=== PATIENT | male | born 1955 | race Caucasian/White ===

== ENCOUNTER 2016-12-21 21:20 | Emergency (ER) | payer OTHER ==
[~2016-12-21] VITALS: Ht 170.2 cm; Wt 66.4 kg
[~2016-12-21 21:20] MED LIST: AVAPRO TAB150 MG/TAB PO; CLEOCIN HCL300 MG PO; COUMADIN 5MG5 MG/TAB PO; LORTAB 5/500 501 TAB; NORVASC 5MG5 MG/TAB PO; PERCOCET 325 MG1 TA2 PO; PRAVACHOL 40MG40 MG PO; PROTONIX 40MG T40 MG PO; PROVENTIL0.09 MG/A1 IH; RYZOLT100 MG; TUSS PO; ZITHROMAX 250M250 MG PO; ZOLOFT 50MG50 MG PO
[2016-12-21 21:22] VITALS: TEMP 97.9
[2016-12-21] MEDS ORDERED: TENORMIN 2525 MG/TAB (21:32)
[2016-12-21] MEDS ORDERED: PERCOCET 325 MG1 TA2 PO (22:07)
[2016-12-21] MEDS ORDERED: ULTRAM 50MG TAB50 MG PO (22:07)
[2016-12-21 22:36] LABS: INR 1.5 (0.8-3.0); PROTHROMBIN TIME 16.8 SECONDS (9.7-12.8)
[2016-12-21 23:42] VITALS: BP 127/86; PULSE 71
== END 2016-12-21 23:32 | disposition home or self-care (01) ==
LOC: COL.ER 21:20
PROVIDERS: Emergency Medicine
DX: S09.90XA Unspecified injury of head, initial encounter (principal); S00.81XA Abrasion of other part of head, initial encounter; S60.511A Abrasion of right hand, initial encounter; I10 Essential (primary) hypertension; K21.9 Gastro-esophageal reflux disease without esophagitis; F17.210 Nicotine dependence, cigarettes, uncomplicated; Z23 Encounter for immunization; Z79.01 Long term (current) use of anticoagulants; Z86.73 Personal history of transient ischemic attack (TIA), and cerebral infarction without residual deficits; V19.9XXA Pedal cyclist (driver) (passenger) injured in unspecified traffic accident, initial encounter; Y92.410 Unspecified street and highway as the place of occurrence of the external cause

== ENCOUNTER 2017-01-22 13:01 | Day surgery (SDC) | payer OTHER ==
[~2017-01-22] VITALS: Ht 170.2 cm; Wt 64.9 kg
[~2017-01-22 13:01] MED LIST changes: +TENORMIN 2525 MG/TAB; +ULTRAM 50MG TAB50 MG PO
[2017-01-22 13:24] VITALS: BP 145/78; PULSE 57; TEMP 97
[2017-01-22] MEDS ORDERED: TENORMIN 5050 MG/TAB PO (13:38)
[2017-01-22] MEDS ORDERED: COUMADIN 3MG3 MG/TAB PO (13:39)
[2017-01-22 15:00] VITALS: BP 122/66; PULSE 50; TEMP 97.2
[2017-01-22 15:15] VITALS: BP 107/65; PULSE 59
[2017-01-22 15:30] VITALS: BP 120/65; PULSE 58
[2017-01-22 15:45] VITALS: BP 112/67; PULSE 47
[2017-01-22 16:37] VITALS: BP 117/72; PULSE 48
== END 2017-01-22 15:56 | disposition home or self-care (01) ==
LOC: SDCO 13:01
DX: K57.30 Diverticulosis of large intestine without perforation or abscess without bleeding (principal); K21.9 Gastro-esophageal reflux disease without esophagitis; I10 Essential (primary) hypertension; E78.00 Pure hypercholesterolemia, unspecified; J45.909 Unspecified asthma, uncomplicated; K59.00 Constipation, unspecified; Z79.01 Long term (current) use of anticoagulants; Z86.73 Personal history of transient ischemic attack (TIA), and cerebral infarction without residual deficits; Z86.010 Personal history of colon polyps; Z83.71 Family history of colonic polyps
CPT/HCPCS: J2250; J3010

== ENCOUNTER 2017-01-31 19:48 | Emergency (ER) | payer OTHER ==
[~2017-01-31] VITALS: Ht 170.2 cm; Wt 67.7 kg
[~2017-01-31 19:48] MED LIST changes: +COUMADIN 3MG3 MG/TAB PO; +TENORMIN 5050 MG/TAB PO
[2017-01-31 19:51] VITALS: TEMP 97.5
[2017-01-31 20:59] LABS: BASO # 0.1 (0.0-0.2); BASO % 0.6 % (0.0-2.0); EOS # 0.3 (0.0-0.7); EOS % 3.2 % (0-4.0); GRAN # 4.9 (1.4-6.5); GRAN % 55.7 % (42.2-75.2); HEMATOCRIT 44.2 % (42.0-52.0); HEMOGLOBIN 15.2 g/dl (13.5-18.0); LYMPH # 2.9 (1.2-3.4); LYMPH % 32.7 % (20.0-51.0); MEAN CELL VOLUME 86 fl (80.0-100.0); MEAN CORPUSCULAR HEMOGLOBIN 30 pg (27.0-31.0); MEAN CORPUSCULAR HGB CONC 34 g/dl (33.0-37.0); MONO # 0.7 (0.1-0.6); MONO % 7.6 % (1.7-9.3); PLATELET COUNT 206 K/mm3 (130-400); RED BLOOD COUNT 5.13 M/mm3 (4.20-5.60); REDCELL DISTRIBUTION WIDTH-CV 13.2 % (11.5-14.5); WHITE BLOOD COUNT 8.8 K/mm3 (4.8-10.8)
[2017-01-31 21:15] LABS: ADJUSTED CALCIUM 9.2 mg/dL (8.4-10.2); ALANINE AMINOTRANSFERASE 19 U/L (21-72); ALKALINE PHOSPHATASE 89 U/L (50-136); ANION GAP 10 mmol/L (7-16); BILIRUBIN,TOTAL 0.4 mg/dL (0.0-1.0); BLOOD UREA NITROGEN 22 mg/dL (9-20); CALCIUM 9.2 mg/dL (8.4-10.2); CARBON DIOXIDE 22 mmol/L (22-30); CHLORIDE 108 mmol/L (98-107); CREATININE, serum 0.96 mg/dL (0.66-1.25); GLUCOSE 94 mg/dL (74-106); POTASSIUM 4.1 mmol/L (3.4-5.0); SODIUM 141 mmol/L (137-145); TOTAL PROTEIN 7.1 gm/dL (6.4-8.2)
[2017-01-31 21:18] LABS: INR 1.4 (0.8-3.0); PROTHROMBIN TIME 15.5 SECONDS (9.7-12.8)
[2017-01-31 21:20] LABS: PARTIAL THROMBOPLASTIN TIME 30.8 SECONDS (26.0-37.0)
[2017-01-31 21:31] LABS: TROPONIN-I < 0.012 ng/mL (0.000-0.034)
[2017-01-31] MEDS ORDERED: NORCO 325 MG-51 TAB PO (21:36)
[2017-01-31 21:50] VITALS: BP 175/96; PULSE 45
== END 2017-01-31 21:55 | disposition home or self-care (01) ==
LOC: COL.ER 19:48
PROVIDERS: Family Medicine
DX: R09.1 Pleurisy (principal); I10 Essential (primary) hypertension; Z86.73 Personal history of transient ischemic attack (TIA), and cerebral infarction without residual deficits; Z79.01 Long term (current) use of anticoagulants
CPT/HCPCS: J1170

== ENCOUNTER 2018-04-30 12:38 | Emergency (ER) | payer BC ==
[~2018-04-30] VITALS: Ht 170.2 cm; Wt 68.2 kg
[~2018-04-30 12:38] MED LIST changes: +NORCO 325 MG-51 TAB PO
[2018-04-30 12:53] VITALS: TEMP 97.6
[2018-04-30] MEDS ORDERED: NORCO 325 MG-7.1 TAB PO (13:55)
[2018-04-30 14:48] VITALS: BP 190/101; PULSE 50
--- NOTE | 2018-04-30 15:34 | NUR ---
LIDA responded to ED call. The patient's nurse reports that the patient answered to the first three questions of the suicide assessment, but that he had already discharged back home with his . LIDA then attempted to contact the patient to follow up and to offer to make a behavioral health appointment. The patient did not answer and he did not have a voicemail set up. LIDA then contacted the patient's PCPs office, Dr. Mckeon, and informed. LIDA was then provided with a different number for the patient's , Essie. LIDA attempted to contact. The automative voice said that the customer was unavailable or traveled outside the covered area.
== END 2018-04-30 14:45 | disposition home or self-care (01) ==
LOC: COL.ER 12:38
DX: S67.193A Crushing injury of left middle finger, initial encounter (principal); K21.9 Gastro-esophageal reflux disease without esophagitis; F17.210 Nicotine dependence, cigarettes, uncomplicated; Z79.01 Long term (current) use of anticoagulants; Z86.73 Personal history of transient ischemic attack (TIA), and cerebral infarction without residual deficits; Z88.0 Allergy status to penicillin; W23.0XXA Caught, crushed, jammed, or pinched between moving objects, initial encounter; Y92.009 Unspecified place in unspecified non-institutional (private) residence as the place of occurrence of the external cause

== ENCOUNTER → 2018-06-25 | Outpatient (CLI) | payer BC ==
[~2018-06-25] MED LIST changes: +NORCO 325 MG-7.1 TAB PO
== END ==
LOC: COL.RAD 14:05
DX: M79.641 Pain in right hand (principal)

== ENCOUNTER 2019-03-18 13:19 | Emergency (ER) | payer BC ==
[~2019-03-18] VITALS: Ht 170.2 cm; Wt 70.5 kg
[2019-03-18 13:33] VITALS: BP 195/97; TEMP 98
[2019-03-18] MEDS ORDERED: MEDROL 4MG DOSPA4 MG PO (14:42)
[2019-03-18] MEDS ORDERED: NORCO 325 MG-51 TAB PO (14:42)
[2019-03-18 15:04] VITALS: PULSE 52
== END 2019-03-18 15:05 | disposition home or self-care (01) ==
LOC: COL.ER 13:19
DX: M10.9 Gout, unspecified (principal); F17.210 Nicotine dependence, cigarettes, uncomplicated; Z79.01 Long term (current) use of anticoagulants; Z86.73 Personal history of transient ischemic attack (TIA), and cerebral infarction without residual deficits

== ENCOUNTER → 2019-06-06 | Outpatient (CLI) | payer BC ==
[~2019-06-06] MED LIST changes: +MEDROL 4MG DOSPA4 MG PO
== END ==
LOC: COL.VAS 08:00
DX: I35.1 Nonrheumatic aortic (valve) insufficiency (principal)

== ENCOUNTER 2021-08-04 13:37 | Emergency (ER) | payer BC ==
[~2021-08-04] VITALS: Ht 170.2 cm; Wt 72.7 kg
[2021-08-04 14:50] LABS: BASO % 0.3 % (0.0-2.0); EOS # 0.4 K/mm3 (0.0-0.7); EOS % 3.1 % (0.0-4.0); GRAN # 9.6 K/mm3 (1.4-6.5); GRAN % 77.9 % (42.2-75.2); HEMOGLOBIN 12.2 g/dl (13.5-18.0); LYMPH # 1.2 K/mm3 (1.2-3.4); LYMPH % 9.8 % (20.0-51.0); MEAN CELL VOLUME 82 fl (80.0-100.0); MEAN CORPUSCULAR HEMOGLOBIN 28 pg (27-31); MEAN CORPUSCULAR HGB CONC 34 g/dl (33.0-37.0); MEAN PLATELET VOLUME 10.8 fl (7.4-10.4); MONO % 8.4 % (1.7-9.3); PLATELET COUNT 300 K/mm3 (130-400); RED BLOOD COUNT 4.36 M/mm3 (4.20-5.60); REDCELL DISTRIBUTION WIDTH-CV 13.1 % (11.5-14.5)
[2021-08-04 14:52] LABS: HEMATOCRIT 35.8 % (42.0-52.0)
[2021-08-04 15:04] LABS: ALANINE AMINOTRANSFERASE 30 U/L (0-55); ALBUMIN 2.3 gm/dL (3.4-4.8); ALKALINE PHOSPHATASE 74 U/L (40-150); ANION GAP 12 mmol/L (7-16); AST,SGOT 24 U/L (5-34); BILIRUBIN,TOTAL 0.3 mg/dL (0.2-1.2); BLOOD UREA NITROGEN 23 mg/dL (8-26); CALCIUM 8.4 mg/dL (8.4-10.2); CARBON DIOXIDE 17 mmol/L (23-31); CHLORIDE 106 mmol/L (98-107); CREATININE, serum 1.06 mg/dL (0.72-1.25); GLUCOSE 126 mg/dL (70-99); SODIUM 135 mmol/L (136-145); TOTAL PROTEIN 6.6 gm/dL (6.2-8.1)
[2021-08-04 15:13] LABS: TROPONIN-I < 0.010 ng/mL (0.00-0.033)
[2021-08-04] MEDS ORDERED: DOXYCYCLINE 10100 MG PO (15:25)
[2021-08-04 15:34] VITALS: BP 118/63; PULSE 80; TEMP 97.6
[2021-08-05] MEDS ORDERED: BENICAR40 MG PO (14:10)
[2021-08-05] MEDS ORDERED: PROTONIX 40MG T40 MG PO (20:22)
[2021-08-07] VITALS (28 sets, daily range): O2SAT 86–100
== END 2021-08-04 15:43 | disposition home or self-care (01) ==
LOC: COL.ER 13:37
PROVIDERS: Physician Assistant
DX: J18.9 Pneumonia, unspecified organism (principal); K08.9 Disorder of teeth and supporting structures, unspecified; Z87.891 Personal history of nicotine dependence; Z20.822 Contact with and (suspected) exposure to COVID-19
CPT/HCPCS: J7030

== ENCOUNTER 2021-08-05 12:55 | Inpatient (IN) | payer BC ==
[2021-08-05] VITALS (93 sets, daily range): BP systolic 123; BP diastolic 73; PULSE 82; TEMP 99.4; O2SAT 77–100
[~2021-08-05] VITALS: Ht 170.2 cm; Wt 64.3 kg
[~2021-08-05 12:55] MED LIST changes: +DOXYCYCLINE 10100 MG PO
[2021-08-05 13:34] LABS: BASO # 0.1 K/mm3 (0.0-0.2); BASO % 0.3 % (0.0-2.0); EOS # 0.2 K/mm3 (0.0-0.7); GRAN # 16.2 K/mm3 (1.4-6.5); GRAN % 86.3 % (42.2-75.2); HEMATOCRIT 37.2 % (42.0-52.0); HEMOGLOBIN 12.4 g/dl (13.5-18.0); LYMPH % 5.3 % (20.0-51.0); MEAN CELL VOLUME 85 fl (80.0-100.0); MEAN CORPUSCULAR HEMOGLOBIN 28 pg (27-31); MEAN CORPUSCULAR HGB CONC 33 g/dl (33.0-37.0); MEAN PLATELET VOLUME 10.7 fl (7.4-10.4); MONO # 1.2 K/mm3 (0.1-0.6); MONO % 6.3 % (1.7-9.3); PLATELET COUNT 285 K/mm3 (130-400); REDCELL DISTRIBUTION WIDTH-CV 13.6 % (11.5-14.5)
[2021-08-05 13:52] LABS: BILIRUBIN,TOTAL 0.4 mg/dL (0.2-1.2); CALCIUM 8.6 mg/dL (8.4-10.2); CREATININE, serum 1.09 mg/dL (0.72-1.25); POTASSIUM 4.7 mmol/L (3.5-4.5); TOTAL PROTEIN 6.5 gm/dL (6.2-8.1)
[2021-08-05 13:58] LABS: TROPONIN-I 0.013 ng/mL (0.00-0.033)
[2021-08-05] MEDS ORDERED: BENICAR40 MG PO (14:10)
[2021-08-05 16:59] LABS: INR 3.2 (0.8-3.0); PROTHROMBIN TIME 36.4 SECONDS (9.7-12.8)
[2021-08-05] MEDS ORDERED: PROTONIX 40MG T40 MG PO (20:22)
[2021-08-05 21:43] LABS: ARTERIAL BLD GAS O2 SATURATION 87.4 % (92-100); ARTERIAL BLD GAS TCO2 CT 20.3; ARTERIAL BLOOD GAS BASE EXCESS -4.1 (-2-2); ARTERIAL BLOOD GAS HCO3 19.4 meq/L (22-26); ARTERIAL BLOOD GAS PO2 49.2 mmHg (80-100); ARTERIAL BLOOD GAS pH 7.41 (7.35-7.45)
--- NOTE | 2021-08-05 21:46 | NUR ---
Vancomycin Initial Dosing Pharmacy Note Ordering provider: Stephane Mckeon MD Indication/duration: PNA X 7 days Relevant comorbidities: HTN, asthma LABS: WBC = 18.7, T = 99.1 F, SCr = 1.09 Recommendation: Will draw troughs and follow levels. Loading dose: 1.5 grams Maintenance dose: 1 gram every 12 hours Trough goal: 15-20 ug/mL
[2021-08-06] VITALS (711 sets, daily range): BP systolic 109–152; BP diastolic 65–88; PULSE 80–87; TEMP 97.6–99.5; O2SAT 53–100
[2021-08-06 03:28] LABS: BASO % 0.2 % (0.0-2.0); EOS % 0.2 % (0.0-4.0); GRAN # 15.5 K/mm3 (1.4-6.5); GRAN % 84.9 % (42.2-75.2); HEMOGLOBIN 10.7 g/dl (13.5-18.0); LYMPH % 5.7 % (20.0-51.0); MEAN CELL VOLUME 87 fl (80.0-100.0); MEAN CORPUSCULAR HEMOGLOBIN 28 pg (27-31); MEAN CORPUSCULAR HGB CONC 32 g/dl (33.0-37.0); MEAN PLATELET VOLUME 11.7 fl (7.4-10.4); MONO # 1.5 K/mm3 (0.1-0.6); MONO % 8.1 % (1.7-9.3); PLATELET COUNT 245 K/mm3 (130-400); REDCELL DISTRIBUTION WIDTH-CV 13.8 % (11.5-14.5)
[2021-08-06 03:32] LABS: CALCIUM 8.4 mg/dL (8.4-10.2)
[2021-08-06 03:34] LABS: ALBUMIN 1.8 gm/dL (3.4-4.8); CREATININE, serum 0.92 mg/dL (0.72-1.25); MAGNESIUM 1.7 mg/dL (1.6-2.6); PHOSPHOROUS 3.1 mg/dL (2.3-4.7); POTASSIUM 4.5 mmol/L (3.5-4.5)
[2021-08-06 03:40] LABS: INR 3.4 (0.8-3.0); PROTHROMBIN TIME 38.6 SECONDS (9.7-12.8)
--- NOTE | 2021-08-06 13:02 | NUR ---
Email Marketing Executive contacted patient's , Stehpany (ph#[phone]) to complete initial intake for patient as patient was heard from outside the room in distress stating he was not feeling well. Stephany advised she and patient are currently and not living together but are legally still . Stephany also advised that she still is in contact with patient who lives in [place]. Stephany advised patient has been seeing Dr. Mckeon for primary care but reports she is trying to help get patient set up with primary care at the [facility] in [place]. Patient obtains medications from [facility] and has a CPAP and nebulizer at home. Patient is independent with ADLS however Stephany advised patient sometimes acts as if he is helpless. Stephany advised patient does not have any Advance Directives. Stephany would be patient's legal next of kin. SW will continue to follow for discharge recommendations.
--- NOTE | 2021-08-06 16:28 | NUR ---
Frame Sample And Pattern Supervisor met with patient to follow up on Advance Directives. Patient would like to designate his , Stephany who is at bedside. Patient states there is no one else he wants making medical decisions for him. SW assisted patient in completing the form then SW and RN provided witness signature. SW placed copy of form in chart then provided original and copies to patient.
--- NOTE | 2021-08-06 19:00 | NUR ---
Received report from SKYLER Marie.
--- NOTE | 2021-08-06 19:43 | NUR ---
Patient complained of cough and chest pain today; patient stated that he "feels like he's dying". PRN morphine was ordered and given in addition to Robitussin. After morphine patient is able to get some rest and seems more comfortable.
[2021-08-06 19:50] LABS: INR 3.1 (0.8-3.0); PROTHROMBIN TIME 34.6 SECONDS (9.7-12.8)
--- NOTE | 2021-08-06 20:00 | NUR ---
Patient resting comfortably in recliner. He is alert and oriented; all vitals within normal limits. He is receiving 4L oxygen via high-flow nasal cannula, tolerating well. IVF infusing at 60mL/hr. Using urinal independently.
[2021-08-07] VITALS (1233 sets, daily range): BP systolic 113–149; BP diastolic 60–78; PULSE 76–92; TEMP 97.4–98.6; O2SAT 73–100
[2021-08-07 05:56] LABS: BASO % 0.2 % (0.0-2.0); EOS # 0.1 K/mm3 (0.0-0.7); EOS % 0.7 % (0.0-4.0); GRAN # 14.4 K/mm3 (1.4-6.5); GRAN % 84.5 % (42.2-75.2); HEMOGLOBIN 10.9 g/dl (13.5-18.0); MEAN CELL VOLUME 85 fl (80.0-100.0); MEAN CORPUSCULAR HEMOGLOBIN 28 pg (27-31); MEAN CORPUSCULAR HGB CONC 33 g/dl (33.0-37.0); MEAN PLATELET VOLUME 10.1 fl (7.4-10.4); MONO # 1.3 K/mm3 (0.1-0.6); MONO % 7.7 % (1.7-9.3); PLATELET COUNT 290 K/mm3 (130-400); RED BLOOD COUNT 3.91 M/mm3 (4.20-5.60); REDCELL DISTRIBUTION WIDTH-CV 14.1 % (11.5-14.5)
[2021-08-07 06:04] LABS: HEMATOCRIT 33.4 % (42.0-52.0)
[2021-08-07 06:19] LABS: ALBUMIN 1.6 gm/dL (3.4-4.8); CALCIUM 8.5 mg/dL (8.4-10.2); CREATININE, serum 0.8 mg/dL (0.72-1.25); MAGNESIUM 1.9 mg/dL (1.6-2.6); PHOSPHOROUS 3.4 mg/dL (2.3-4.7); POTASSIUM 4.3 mmol/L (3.5-4.5)
[2021-08-07 06:47] LABS: INR 2.2 (0.8-3.0); PROTHROMBIN TIME 24.7 SECONDS (9.7-12.8)
[2021-08-07 13:21] LABS: INR 2.4 (0.8-3.0); PROTHROMBIN TIME 26.9 SECONDS (9.7-12.8)
[2021-08-08] VITALS (665 sets, daily range): BP systolic 101–172; BP diastolic 68–102; PULSE 76–108; TEMP 97.8–98.5; O2SAT 50–100
[2021-08-08 06:02] LABS: BASO % 0.2 % (0.0-2.0); EOS # 0.3 K/mm3 (0.0-0.7); EOS % 2.3 % (0.0-4.0); GRAN # 11.7 K/mm3 (1.4-6.5); GRAN % 79.8 % (42.2-75.2); HEMOGLOBIN 10.7 g/dl (13.5-18.0); LYMPH # 1.1 K/mm3 (1.2-3.4); LYMPH % 7.7 % (20.0-51.0); MEAN CELL VOLUME 85 fl (80.0-100.0); MEAN CORPUSCULAR HEMOGLOBIN 28 pg (27-31); MEAN CORPUSCULAR HGB CONC 33 g/dl (33.0-37.0); MEAN PLATELET VOLUME 10.5 fl (7.4-10.4); MONO # 1.3 K/mm3 (0.1-0.6); MONO % 8.8 % (1.7-9.3); PLATELET COUNT 316 K/mm3 (130-400); REDCELL DISTRIBUTION WIDTH-CV 13.9 % (11.5-14.5)
[2021-08-08 06:07] LABS: HEMATOCRIT 32.4 % (42.0-52.0)
[2021-08-08 06:16] LABS: PROTHROMBIN TIME 22.3 SECONDS (9.7-12.8)
[2021-08-08 06:18] LABS: ALBUMIN 1.6 gm/dL (3.4-4.8); CALCIUM 8.4 mg/dL (8.4-10.2); CREATININE, serum 0.76 mg/dL (0.72-1.25); PHOSPHOROUS 2.8 mg/dL (2.3-4.7)
--- NOTE | 2021-08-08 07:00 | NUR ---
RECEIVED REPORT FROM SKYLER HINOJOSA. PT RESTING ON EDGE OF BED ON 4L VIA NC. VSS. CALL LIGHT WITHIN REACH.
--- NOTE | 2021-08-08 09:43 | NUR ---
Vancomycin Follow-up Pharmacy Note Current regimen: VANCOMYCIN 1 G Q12H Vancomycin trough: 11.8 Adjustments: INCREASE TO VANCOMYCIN 1.25 G Q12H; TARGET TROUGH ~15
[2021-08-08 12:17] LABS: PLEURAL FLUID RBC 9000 /mm3 (0-0); PLEURAL FLUID WBC 4193 /mm3
[2021-08-08 12:20] LABS: PLEURAL FLUID APPEARANCE CLOUDY; PLEURAL FLUID COLOR PINK
--- NOTE | 2021-08-08 14:20 | NUR ---
REPORT CALLED TO SKYLER MORAN. PT TO TRANSFER VIA WC ON 1L VIA NC TO 331 AFTER SECOND FFP IS FINISHED SHORTLY. PT AWARE OF TRANSFER. TELEMETRY BOX IN PLACE. ALL PERSONAL BELONGINGS SENT WITH PT.
--- NOTE | 2021-08-08 15:00 | NUR ---
Patient arrived to room 331 from ICU at this time, he is alert/oriented, on 1L. o2 and sitting at edge of bed eating his lunch, suction set up in the room as patient has persistent cough with drainage, he dneies other needs at this time, call light in reach and instructed to call for any needs
[2021-08-08 16:00] LABS: INR 1.9 (0.8-3.0); PROTHROMBIN TIME 21.7 SECONDS (9.7-12.8)
--- NOTE | 2021-08-08 19:30 | NUR ---
PATIENT CALLED OUT AND IS HAVING A COUGHING SPELL AND STATES HE CAN'T BREATHE. O2 SATS IN MID 90'S ON 3L PER NC, INCREASED 02 TO 4L PER PATIENT COMFORT. SUCTION PROVIDED. PATIENT SEEMS VERY ANXIOUS, CALLED HOSPITALIST, SEE NEW ORDERS. GAVE PRN ATIVAN WITH SCHEDULED HS MEDS. PATIENT ALSO C/O DISCOMFORT FROM COUGHING. GAVE PRN IV MORPHINE. A&P LUNG FILEDS ARE DEMINISHED WITH FC IN RIGHT LOWER LOBE BASES. PATIENT COUGHING UP THICK MUCUS. GAVE PRN COUGH & MUCUS RELIEF MEDS, SEE MAR. PATIENT SITTING UP AT EDGE OF BED. CALLED RT FOR TREATMENT. PATIENT SEEMS TO BE CALMING. VSS ON TELE. IV ABX INFUSING VIA PUMP INTO RIGHT UPPER ARM PICC. TOLERATED GENERAL DIET. NO C/O N/V. HEAD TO TOE ASSESSMENT COMPLETE. WILL MONITOR.
--- NOTE | 2021-08-08 20:30 | NUR ---
PATIENT ENDED UP REFUSING RT TREATMENT BECAUSE HE SAYS IT CAUSES HIM TO COUGH. RT WILL CONTINUE TO CHECK IN.
--- NOTE | 2021-08-08 21:45 | NUR ---
PATIENT GIVEN FAN, PER HIS REQUEST, TO HELP HIM "BREATHE AND COOL OFF".
[2021-08-09 03:51] VITALS: BP 158/87; PULSE 97; TEMP 98.5
--- NOTE | 2021-08-09 04:00 | NUR ---
PATIENT APPEARS TO BE MUCH MORE RELAXED AND ISN'T ANXIOUS. PATIENT ISN'T BREATHING HARD OR COUGHING MUCH. COUGH & MUCUS RELIEF MEDICATIONS ALONG WITH PRN ATIVAN AND MORPHINE EASED HIS BREATHING EFFORT. NURSING DID ENTER ROOM TO FIND PATIENT WITH HIS OXYGEN OFF, B/P CUFF TAKEN OFF AND TELE DANGLING FROM HIS CHEST. NURSING ASSISTED HIM TO FIX ALL THIS. HE ANSWERED ORIENTATION QUESTIONS CORRECTLY BUT WAS NOT HAPPY ABOUT ANSWERING OUR QUESTIONS. PATIENT IS NOW SITTING AT BEDSIDE. NO NEEDS. CALL LIGHT IN REACH.
[2021-08-09 06:18] LABS: BASO % 0.3 % (0.0-2.0); EOS # 0.2 K/mm3 (0.0-0.7); EOS % 1.2 % (0.0-4.0); GRAN # 11.3 K/mm3 (1.4-6.5); GRAN % 81.1 % (42.2-75.2); LYMPH % 7.1 % (20.0-51.0); MEAN CELL VOLUME 85 fl (80.0-100.0); MEAN CORPUSCULAR HGB CONC 33 g/dl (33.0-37.0); MEAN PLATELET VOLUME 10.6 fl (7.4-10.4); MONO # 1.3 K/mm3 (0.1-0.6); MONO % 9.1 % (1.7-9.3); PLATELET COUNT 299 K/mm3 (130-400); REDCELL DISTRIBUTION WIDTH-CV 13.9 % (11.5-14.5)
[2021-08-09 06:24] LABS: HEMATOCRIT 30.5 % (42.0-52.0); HEMOGLOBIN 9.9 g/dl (13.5-18.0); INR 2.1 (0.8-3.0); MEAN CORPUSCULAR HEMOGLOBIN 28 pg (27-31); PROTHROMBIN TIME 22.9 SECONDS (9.7-12.8)
[2021-08-09 06:36] LABS: ALBUMIN 1.7 gm/dL (3.4-4.8); CALCIUM 7.7 mg/dL (8.4-10.2); CREATININE, serum 0.71 mg/dL (0.72-1.25); MAGNESIUM 1.9 mg/dL (1.6-2.6); PHOSPHOROUS 2.4 mg/dL (2.3-4.7); POTASSIUM 3.5 mmol/L (3.5-4.5)
[2021-08-09 07:33] VITALS: BP 153/58; PULSE 82; TEMP 97.6
--- NOTE | 2021-08-09 08:55 | NUR ---
Pt assessment complete. Pt is sitting up on the side of the bed upon entry, he is A/O x4. His breathing is even and unlabored on 4L O2 via NC. Pt reports occasional SOB at rest and worsened on exertion. Intermittent cough present, pt states he has pain to R side of chest with coughing. Denies any N/V. Discussed POC with patient who verbalizes understanding. IVF infusing into RUE PICC line. Call light within reach.
--- NOTE | 2021-08-09 10:59 | NUR ---
Pt sitting bedside, appears to be comfortable. Speaks without dyspnea or coughing at this time. Doing exercises provided by PT.
[2021-08-09 11:51] VITALS: BP 151/90; PULSE 85; TEMP 97.8
[2021-08-09 15:24] VITALS: BP 143/92; PULSE 86; TEMP 98
[2021-08-09 18:36] LABS: INR 2.2 (0.8-3.0); PROTHROMBIN TIME 24.7 SECONDS (9.7-12.8)
[2021-08-09 20:25] VITALS: BP 181/79; PULSE 90; TEMP 98.8
[2021-08-09 23:54] VITALS: BP 133/80; PULSE 85; TEMP 99
[2021-08-10 04:17] VITALS: BP 166/77; PULSE 108; TEMP 98.8
[2021-08-10 05:05] LABS: HEMOGLOBIN 10.4 g/dl (13.5-18.0); MEAN CELL VOLUME 84 fl (80.0-100.0); MEAN CORPUSCULAR HEMOGLOBIN 28 pg (27-31); MEAN CORPUSCULAR HGB CONC 33 g/dl (33.0-37.0); MEAN PLATELET VOLUME 10.4 fl (7.4-10.4); PLATELET COUNT 340 K/mm3 (130-400); RED BLOOD COUNT 3.73 M/mm3 (4.20-5.60)
[2021-08-10 05:17] LABS: INR 2.2 (0.8-3.0); PROTHROMBIN TIME 24.7 SECONDS (9.7-12.8)
[2021-08-10 05:21] LABS: ALBUMIN 1.8 gm/dL (3.4-4.8); CALCIUM 8.2 mg/dL (8.4-10.2); CREATININE, serum 0.81 mg/dL (0.72-1.25); MAGNESIUM 1.8 mg/dL (1.6-2.6); POTASSIUM 3.6 mmol/L (3.5-4.5)
[2021-08-10 05:22] LABS: HEMATOCRIT 31.3 % (42.0-52.0)
[2021-08-10 05:35] LABS: BAND 2 % (0-10); EOSINOPHIL 2 % (0-4); LYMPHOCYTE 7 % (20.0-51.0); NEUTROPHILS 87 % (42.0-75.2)
[2021-08-10 05:36] LABS: PLATELET ESTIMATE NORMAL (NORMAL)
--- NOTE | 2021-08-10 06:31 | NUR ---
ASSUMED CARE OF PATIENT AFTER RECEIVING BEDSIDE REPORT. PATIENT VISIBLY ANXIOUS AND UPSET. PATIENT FEELS THOUGH HE CAN'T BREATHE, RT TO BEDSIDE FOR BREATHING TREATMENT, BOTH RT AND RN PROVIDED REASSURANCE. BOUNDARIES SET WITH PATIENT HE BECAME ANGRY WITH BOTH RT AND RN. PATIENT GIVEN MORPHINE FOR AIR HUNGER WRITTEN AND SCHEDULED TESSALON PEARLES. ONE DOSE OF PRN ROBUTUSSIN GIVEN. PATIENT REPORTS ABLE TO REST. A REDUCTION IN COUGHING FITS WAS NOTED. INR IS 2.2 THIS MORNING, NO ADDITIONAL ORDERS IN CHART AT THIS TIME. BEDSIDE REPORT TO BE GIVEN TO ONCOMING SHIFT.
[2021-08-10 07:56] VITALS: BP 144/88; PULSE 84; TEMP 98.2
[2021-08-10 12:10] VITALS: BP 157/76; PULSE 87; TEMP 98.1
[2021-08-10 15:55] VITALS: BP 161/72; PULSE 92; TEMP 98.5
--- NOTE | 2021-08-10 16:26 | NUR ---
Received report from shift production supervisor. Patient alert and oriented x4. VSS. Lungs reveal expiratory wheezes on all hager. Bowel sounds present. Pedal edema +2. Patient claims pain is 8/10. AM meds administered. Patient resting in bed waiting for breakfast. Call light near.
[2021-08-10 20:15] VITALS: BP 180/69; PULSE 100; TEMP 94
[2021-08-11 00:14] VITALS: BP 148/78; PULSE 79; TEMP 99.4
[2021-08-11 04:14] VITALS: BP 146/76; PULSE 79; TEMP 99.1
--- NOTE | 2021-08-11 05:23 | NUR ---
Full body assessment completed and vital signs have been stable. Patient has had complaints of SOB and pain in his mid right rib area. Morphine has been administered throughout the shift. Patient is NPO as of midnight due to the possibility of a procedure tomorrow (08/11). Consent has not been signed as of this shift. Patient complains of not being able to get comfortable to sleep; however once this nurse got the patient comfortable in bed patient was able to fall asleep. No other complaints at this time. Call light within reach.
[2021-08-11 07:08] LABS: HEMOGLOBIN 10.7 g/dl (13.5-18.0); MEAN CELL VOLUME 84 fl (80.0-100.0); MEAN CORPUSCULAR HEMOGLOBIN 28 pg (27-31); MEAN CORPUSCULAR HGB CONC 33 g/dl (33.0-37.0); MEAN PLATELET VOLUME 10.7 fl (7.4-10.4); PLATELET COUNT 355 K/mm3 (130-400); RED BLOOD COUNT 3.88 M/mm3 (4.20-5.60); REDCELL DISTRIBUTION WIDTH-CV 14.2 % (11.5-14.5)
[2021-08-11 07:12] LABS: INR 2.2 (0.8-3.0); PROTHROMBIN TIME 24.8 SECONDS (9.7-12.8)
[2021-08-11 07:24] LABS: HEMATOCRIT 32.7 % (42.0-52.0)
[2021-08-11 07:26] LABS: CALCIUM 8.5 mg/dL (8.4-10.2); CREATININE, serum 0.8 mg/dL (0.72-1.25); MAGNESIUM 1.9 mg/dL (1.6-2.6); POTASSIUM 3.6 mmol/L (3.5-4.5)
[2021-08-11 07:38] LABS: EOSINOPHIL 6 % (0-4); HYPOCHROMIA 1+; LYMPHOCYTE 7 % (20.0-51.0); NEUTROPHILS 79 % (42.0-75.2)
[2021-08-11 07:39] LABS: PLATELET ESTIMATE NORMAL (NORMAL)
--- NOTE | 2021-08-11 08:35 | NUR ---
PATIENT OFF OF TELE AND OFF OF FLOOR FOR PROCEDURE.
[2021-08-11 08:43] LABS: INR 1.7 (0.8-3.0); PROTHROMBIN TIME 18.5 SECONDS (9.7-12.8)
[2021-08-11 16:45] VITALS: BP 117/69; PULSE 78; TEMP 97.7
[2021-08-11 19:07] VITALS: BP 140/61; PULSE 90; TEMP 97.7
[2021-08-11 22:45] VITALS: BP 112/66; PULSE 77; TEMP 98.8
[2021-08-12 03:57] VITALS: BP 125/71; PULSE 76; TEMP 97.7
--- NOTE | 2021-08-12 04:17 | NUR ---
PT IN BED. DILAUDID FOR PAIN. CHEST TUBE PATENT. NO SIGNS OF LEAKAGE.
[2021-08-12 06:36] LABS: MEAN CELL VOLUME 85 fl (80.0-100.0); MEAN CORPUSCULAR HGB CONC 33 g/dl (33.0-37.0); MEAN PLATELET VOLUME 10.8 fl (7.4-10.4); PLATELET COUNT 315 K/mm3 (130-400); RED BLOOD COUNT 3.45 M/mm3 (4.20-5.60); REDCELL DISTRIBUTION WIDTH-CV 14.2 % (11.5-14.5)
[2021-08-12 06:37] LABS: INR 2.1 (0.8-3.0); PROTHROMBIN TIME 23.2 SECONDS (9.7-12.8)
[2021-08-12 06:44] LABS: CALCIUM 8.2 mg/dL (8.4-10.2); CREATININE, serum 1.13 mg/dL (0.72-1.25); MAGNESIUM 2.1 mg/dL (1.6-2.6); POTASSIUM 3.6 mmol/L (3.5-4.5)
[2021-08-12 06:48] LABS: HEMATOCRIT 29.3 % (42.0-52.0); HEMOGLOBIN 9.6 g/dl (13.5-18.0); MEAN CORPUSCULAR HEMOGLOBIN 28 pg (27-31)
[2021-08-12 07:38] LABS: BAND 18 % (0-10); LYMPHOCYTE 6 % (20.0-51.0); NEUTROPHILS 73 % (42.0-75.2); NUCLEATED RED BLOOD CELL 1 (0-6)
[2021-08-12 07:39] LABS: PLATELET ESTIMATE NORMAL (NORMAL)
[2021-08-12 07:44] VITALS: BP 142/59; PULSE 77; TEMP 97.8
--- NOTE | 2021-08-12 08:00 | NUR ---
Pt resting in bed. Chest tube to wall suction. Pt having complaints of pain, oral pain medication given. Reviewed medications with pt. Pt currently finishing breakfast, informed him I would return
--- NOTE | 2021-08-12 11:36 | NUR ---
Picking Supervisor checked in with patient to follow up on discharge plan. Patient stated he is in a great deal of pain and has been told he will be here a couple more days. Patient still plans to return home at time of discharge. SW discussed Home Health services with patient who advised he may be interested but wants to think about it. Patient states even though he and his are not together at this time, she stops by his house almost daily after work to check on him. Discharge Plan: Home, possible HH
--- NOTE | 2021-08-12 11:37 | NUR ---
Pt sitting up on the side of the bed with complaints of pain to his right chest. Pt stated that the pain started all of a sudden. Pt is breathing rapidly and taking shallow breaths. Encouraged him to try and slow down his breathing. He was very worked up and was coughing a lot prior to me coming in, but did not while i was in the room. Dressing was changed as it was starting to come off the initial chest tube insertion site. Gave pt IV pain medication at this time and informed him that I could bring more closer to noon. Pt does use his call light often and appears to be rather forgetful. Within about 5 minutes of leaving pt room, he will call and ask for the same things that I was just in doing.
[2021-08-12 11:52] VITALS: BP 133/70; PULSE 85; TEMP 98.4
--- NOTE | 2021-08-12 12:19 | NUR ---
Pt resting in bed, reports not having any pain while at rest. Pt is much more calm at this time. Denies the need for any additional pain medication
--- NOTE | 2021-08-12 13:12 | NUR ---
pt continues to do well with minimal pain complaints. Pt is looking over menu to order some lunch. No needs verbalized
[2021-08-12 15:29] VITALS: BP 129/47; PULSE 89; TEMP 97.6
[2021-08-12 20:42] VITALS: BP 132/65; PULSE 87; TEMP 97.8
[2021-08-12 23:53] VITALS: BP 121/61; PULSE 84; TEMP 98.5
[2021-08-13 04:02] VITALS: BP 143/76; PULSE 81; TEMP 97.8
--- NOTE | 2021-08-13 05:56 | NUR ---
Report received from dayshift nurse. Patient has been pleasant throughout this shift, has complained of pain throughout the shift. Full body assessment and medication administration completed without difficulty. Chest tube insertion site is covered in gauze and CDI. Patient has had no other complaints thus far. Will continue to monitor, call light within reach.
[2021-08-13 06:15] LABS: MEAN CELL VOLUME 84 fl (80.0-100.0); MEAN CORPUSCULAR HGB CONC 33 g/dl (33.0-37.0); MEAN PLATELET VOLUME 10.8 fl (7.4-10.4); PLATELET COUNT 350 K/mm3 (130-400); RED BLOOD COUNT 3.27 M/mm3 (4.20-5.60); REDCELL DISTRIBUTION WIDTH-CV 14.3 % (11.5-14.5)
[2021-08-13 06:24] LABS: HEMATOCRIT 27.6 % (42.0-52.0); MEAN CORPUSCULAR HEMOGLOBIN 28 pg (27-31)
[2021-08-13 06:36] LABS: CALCIUM 7.9 mg/dL (8.4-10.2); CREATININE, serum 0.93 mg/dL (0.72-1.25); POTASSIUM 3.9 mmol/L (3.5-4.5)
[2021-08-13 07:20] VITALS: BP 152/75; PULSE 76; TEMP 98.5
[2021-08-13 07:23] LABS: BAND 1 % (0-10); HYPOCHROMIA 1+; LYMPHOCYTE 15 % (20.0-51.0); NEUTROPHILS 80 % (42.0-75.2)
[2021-08-13 08:02] LABS: INR 1.8 (0.8-3.0); PROTHROMBIN TIME 20.1 SECONDS (9.7-12.8)
--- NOTE | 2021-08-13 09:59 | NUR ---
Initial visit; Patient thanked Pleat Patternmaker for looking in on him and offering Spiritual Care. 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
[2021-08-13 11:34] VITALS: BP 142/67; PULSE 82; TEMP 98.6
--- NOTE | 2021-08-13 15:16 | NUR ---
PATIENT HAS HAD MULTIPLE OUTBURSTS TODAY STATING HE CAN NOT BREATH, VIOLENTLY COUGHING AND YELLING OUT. VITALS ARE WNL DURING EVERY OUTBURST. NO SIGNS OF HYPOXIA OBSERVED OR MEASURED. BELIEVE THIS IS MORE DUE TO ANXIETY. PATIENT ALSO REQUESTING IV PAIN MEDICATIONS APPROX EVERY HOUR. CHEST TUBE IN TACT AND DRAINING WELL. CHANGED FROM INT SUCTION TO WATER SEAL. AFEBRILE ENTIRE SHIFT.
[2021-08-13 15:41] VITALS: BP 139/75; PULSE 93; TEMP 99.1
--- NOTE | 2021-08-13 16:00 | NUR ---
TAKING OVER PATIENT'S CARE. PATIENT IS VERY UPSET AND YELLING AT STAFF SAYING "MY LIFE IS IN YOUR HANDS AND I FEEL LIKE IM FALLING DOWN THE ELEVATOR SHAFT". NURSING GAVE PRN IV DILAUDID FOR PAIN, PRN XANAX FOR AGGITATION/ANXIETY, AND SCHEDULED TESSELON PEARLS AND IV ABX. PATIENT REFUSED PRN COUGH MEDICINE WHEN OFFERED BY NURSING. HE MADE IT VERY CLEAR HE ONLY WANTS TO SEE A DOCTOR STATING "NURSES ARE NOT DOCTORS". PATIENT IS DEMANDING TO SEE A DOCTOR. LEFT MESSAGE FOR AND CALLED TRIXIE TUCKER WITH HOSPITALIST WHO SAID WOULD BE DOWN. PATIENT IS VERY RUDE TO NURSING STAFF AND DISRESPECTFUL OF ASSISTANCE. WHEN PATIENT BEGINS TO COUGH HE YELLS VERY LOUD AND FLAILS HIS EXTREMITIES IN THE AIR VERY DRAMATICALLY. PATIENT CLEARLY HAS DISCOMFORT AND CHEST TUBE SITE WHEN FLAILING AROUND LIKE THIS. NURSING EDUCATED PATIENT ABOUT CHEST TUBE, TO WHICH HE REMINDED ME THAT I "WAS ONLY A NURSE". PATIENT OXYGEN SAT AT 92% ON 3L. CHEST TUBE TO WATER SEAL. WAITING FOR PROVIDERS TO ROUND.
--- NOTE | 2021-08-13 16:15 | NUR ---
CXR ORDERED. CALLED BACK BUT NOT INHOUSE. TO COME SEE PATIENT. PATIENT REMAINS STABLE WITH VITALS AND RECENTLY HAD A BREATHING TX FROM RT
[2021-08-13 19:53] VITALS: BP 125/70; PULSE 87; TEMP 99.4
[2021-08-14 00:04] VITALS: BP 145/80; PULSE 77; TEMP 97.5
[2021-08-14 03:31] VITALS: BP 130/75; PULSE 74; TEMP 97.6
[2021-08-14 06:23] LABS: MEAN CELL VOLUME 86 fl (80.0-100.0); MEAN CORPUSCULAR HGB CONC 32 g/dl (33.0-37.0); MEAN PLATELET VOLUME 10.6 fl (7.4-10.4); PLATELET COUNT 356 K/mm3 (130-400); RED BLOOD COUNT 3.49 M/mm3 (4.20-5.60); REDCELL DISTRIBUTION WIDTH-CV 14.7 % (11.5-14.5)
[2021-08-14 06:26] LABS: INR 1.7 (0.8-3.0); PROTHROMBIN TIME 19.4 SECONDS (9.7-12.8)
[2021-08-14 06:27] LABS: HEMATOCRIT 30.1 % (42.0-52.0); HEMOGLOBIN 9.6 g/dl (13.5-18.0); MEAN CORPUSCULAR HEMOGLOBIN 28 pg (27-31)
[2021-08-14 06:35] LABS: CREATININE, serum 0.83 mg/dL (0.72-1.25); POTASSIUM 4.1 mmol/L (3.5-4.5)
[2021-08-14 07:10] LABS: BAND 4 % (0-10); BASOPHIL 1 % (0-2); EOSINOPHIL 8 % (0-4); LYMPHOCYTE 19 % (20.0-51.0); NEUTROPHILS 59 % (42.0-75.2); TARGET CELLS 1+
[2021-08-14 07:11] LABS: PLATELET ESTIMATE NORMAL (NORMAL); POLYCHROMASIA 1+
[2021-08-14 07:24] VITALS: BP 127/72; PULSE 72; TEMP 97.9
--- NOTE | 2021-08-14 09:23 | NUR ---
PT. SITTING UP IN BED. PT. INCONTIENT OF STOOL. HELPED TO THE BATHROOM FOR A BM. GAIT WAS STEADY BUT WEAK. INCISION TO RIGHT SIDE OF CHEST CLD&I X2. CHEST TUBE IN PLACE TO THE RIGHT SIDE WITH RED DRAINAGE. PT. COMPLAING OF MILD PAIN OF 1/10. LUNG SOUNDS DIMINISHED ON THE RIGHT SIDE. SKYLER PEREZ.
--- NOTE | 2021-08-14 10:13 | NUR ---
Notified Dr Henriquez office to obtain records. Order was not able to be completed
[2021-08-14 11:11] VITALS: BP 146/93; PULSE 89; TEMP 97.7
--- NOTE | 2021-08-14 12:33 | NUR ---
Director Of Partnerships met with patient and his to follow up on Home Health services. Patient is interested but would like a referral sent first to see what his insurance would cover. SW reviewed four options for HH agencies that serve [place]: [facility], [facility], [facility], [facility] and patient selected [facility]. LIDA contacted Emerita at [facility] and faxed referral. Emerita advised she would check patient's benefits and follow up with LIDA. Discharge Plan: Home, possible HH
--- NOTE | 2021-08-14 15:09 | NUR ---
Pt has done well today with minimal complaints. Pt has only received one dose of oral pain medication. Reports little to no pain at this time. Pt has been up ambulating in the halls with staff, tolerates with no issues. Dressing changed to right chest incisions and the chest tube. Incisions all well approximated with makenzie intact. Chest tube remains to water seal.
[2021-08-14 15:33] VITALS: BP 150/71; PULSE 91; TEMP 98.4
--- NOTE | 2021-08-14 20:12 | NUR ---
TX GIVEN VIA MOUTHPIECE, TOLERATED WELL. PT FOUND ON ROOM AIR WITH SPO2=91%. AFTER TX SPO2 94%. PT REQUESTED I TURN O2 BACK ON. I EXPLAINED THAT TOO MUCH O2 CAN BE DANGEROUS AND THAT IF HIS SPO2 DROPS TOO LOW WE WILL USE SUPPLEMENTAL O2 BUT AT THIS TIME HIS SPO2 IS GOOD ON ROOM AIR. PT REQUESTED TO SPEAK WITH HIS NURSE AND I NOTIFIED HER THAT HE WOULD LIKE TO TALK TO HER.
[2021-08-14 21:13] VITALS: BP 163/73; PULSE 98; TEMP 98.8
[2021-08-15 01:22] VITALS: BP 134/54; PULSE 84; TEMP 99
[2021-08-15 04:56] VITALS: BP 140/73; PULSE 74; TEMP 98
[2021-08-15 06:35] LABS: HEMOGLOBIN 10.5 g/dl (13.5-18.0); MEAN CELL VOLUME 84 fl (80.0-100.0); MEAN CORPUSCULAR HEMOGLOBIN 28 pg (27-31); MEAN CORPUSCULAR HGB CONC 33 g/dl (33.0-37.0); MEAN PLATELET VOLUME 10.8 fl (7.4-10.4); PLATELET COUNT 364 K/mm3 (130-400); RED BLOOD COUNT 3.82 M/mm3 (4.20-5.60); REDCELL DISTRIBUTION WIDTH-CV 14.4 % (11.5-14.5)
[2021-08-15 06:45] LABS: HEMATOCRIT 32.2 % (42.0-52.0)
[2021-08-15 06:50] LABS: CALCIUM 8.7 mg/dL (8.4-10.2); CREATININE, serum 1.11 mg/dL (0.72-1.25); POTASSIUM 4.3 mmol/L (3.5-4.5)
--- NOTE | 2021-08-15 07:16 | NUR ---
Patient has had a difficult night, had complaints of pain at his chest tube site as well as difficulty breathing. O2 levels averaged 91-93% on room air, however, patient insisted that he needed supplemental O2. This nurse, and a member of RT, explained the consequences of using 02 when it is not used at home and that without supplemental O2 his saturation was WNL. Patient expressed understanding for the moment but insisted later on in the night that he needed the NC. This nurse placed the O2 on the patient but did not increase it to the 4.5L that it had been at previously. Set the O2 to 2L and this appeased the patient and O2 were WNL throughout the shift. Patient had no other complaints at this time. Through out the shift there was 50ml of drainage from the patients chest tube. Patient had no other complaints throughout the shift. Call light within reach.
[2021-08-15 07:19] LABS: EOSINOPHIL 7 % (0-4); LYMPHOCYTE 10 % (20.0-51.0); MYELOCYTE 1 % (0-0); NEUTROPHILS 78 % (42.0-75.2)
[2021-08-15 07:55] VITALS: BP 141/80; PULSE 74; TEMP 98.1
[2021-08-15 08:28] LABS: INR 1.7 (0.8-3.0); PROTHROMBIN TIME 19.1 SECONDS (9.7-12.8)
[2021-08-15 12:31] VITALS: BP 122/98; PULSE 91; TEMP 98.1
--- NOTE | 2021-08-15 12:43 | NUR ---
Follow-up visit; Patient requested a follow-up visit. Automatic Drilling Machine Operator listened to Ady and offered practical, spiritual help along with bringing him a New Testament by his request. Patient emotionally distraught about his personal life as well as his health and spirituality. He stated Automatic Drilling Machine Operator helped him look at what he knows to be the right road to take.
--- NOTE | 2021-08-15 12:54 | NUR ---
pt sitting up in the chair. He does have increased swelling to his bilateral lower extermities. Notified Dr Alvarez, new orders wrote. Pt reports that his pain is tolerable, denies the need for pain medication at this time
[2021-08-15 16:10] VITALS: BP 151/71; PULSE 81; TEMP 97.6
--- NOTE | 2021-08-15 17:49 | NUR ---
Patient sitting up in the recliner finishing up dinner. A&Ox4. VSS. IV CDI. Chest tube to water seal, intact. No reported pain or SOB. Patient independent in the room. Call light within reach
--- NOTE | 2021-08-15 19:44 | NUR ---
PT RESTING IN BED. A&O X4. WEEPING. ALITTLE DEPRESSED. PROVIDED EMOTIONAL SUPPORT. CALL LIGHT IN REACH. NO RESP DISTRESS. O2 AT 1L N/C.
[2021-08-15 20:20] VITALS: BP 141/74; PULSE 81; TEMP 98.5
--- NOTE | 2021-08-15 21:00 | NUR ---
PT ARGUING WITH RT STAFF ABOUT O2 NC/NEEDS. ARAM HERE TO TALK WITH PT. NEW ORDER FOR OXIMETRY NOTED.
--- NOTE | 2021-08-15 21:01 | NUR ---
SEE MAR FOR ROXICODONE 5MG GIVEN FOR GENERAL ACHES LEVEL 4-5. 6 WITH ACTIVITY.
--- NOTE | 2021-08-15 21:45 | NUR ---
OXIMETRY SET UP FOR THE NIGHT. PT AGREEABLE.
--- NOTE | 2021-08-15 21:46 | NUR ---
PT GOT VERY ANGRY WHEN I TITRATED HIS O2. I TOLD HIM THAT I AM FOLLOWING THE DRS ORDERS AND THAT TOO MUCH O2 CAN BE DANGEROUS JUST WITH ANY OTHER MEDICATION AND THAT WE HAVE TO FOLLOW THE DRS ORDERS. PT REFUSED TO FINISH HIS TX. RICHARD RICE NP NOTIFIED AND SHE VISITED WITH THE PT ABOUT HIS O2 ORDER. SHE ADDITIONALLY ORDERED A CONTINUOUS PULSE OX SO THAT WE WILL KNOW IF HIS SPO2 DROPS AT ANY TIME. RN AT BEDSIDE AND AWARE OF SITUATION.
--- NOTE | 2021-08-15 23:35 | NUR ---
O2 SATS 91-92%RA. PT AGREES HE GETS ANXIOUS WITHOUT O2 WHETHER HE NEEDS IT OR NOT. INSTRUCTED BREATHING RELAXATION TECHNIQUES.
[2021-08-16 00:41] VITALS: BP 111/77; PULSE 83; TEMP 98.7
--- NOTE | 2021-08-16 03:56 | NUR ---
SEE MAR FOR ROXICODONE 5MG GIVEN FOR CT PAIN AND ANXIETY. O2 SAT'S 90-96% THROUGH THE NIGHT.
[2021-08-16 05:11] VITALS: BP 123/71; PULSE 71; TEMP 98.7
[2021-08-16 06:56] VITALS: BP 155/78; PULSE 81; TEMP 97.9
[2021-08-16 07:06] LABS: CALCIUM 8.3 mg/dL (8.4-10.2); CREATININE, serum 1.03 mg/dL (0.72-1.25); POTASSIUM 4.6 mmol/L (3.5-4.5)
[2021-08-16 07:34] LABS: HEMATOCRIT 31.1 % (42.0-52.0); MEAN CELL VOLUME 85 fl (80.0-100.0); MEAN CORPUSCULAR HEMOGLOBIN 27 pg (27-31); MEAN CORPUSCULAR HGB CONC 32 g/dl (33.0-37.0); MEAN PLATELET VOLUME 11.1 fl (7.4-10.4); PLATELET COUNT 268 K/mm3 (130-400); RED BLOOD COUNT 3.66 M/mm3 (4.20-5.60); REDCELL DISTRIBUTION WIDTH-CV 14.4 % (11.5-14.5)
[2021-08-16 07:46] LABS: BAND 6 % (0-10); EOSINOPHIL 2 % (0-4); LYMPHOCYTE 18 % (20.0-51.0); METAMYELOCYTE 1 % (0-0); NEUTROPHILS 72 % (42.0-75.2)
[2021-08-16 07:47] LABS: PLATELET ESTIMATE NORMAL (NORMAL)
--- NOTE | 2021-08-16 09:35 | NUR ---
This Student nurse reenforced Rt chest tube dressing r/t increased light pink drainage and dressing not fastened securely to the chest. Primary nurse Chantelle suggested to reenforce due to Provider coming to visit Pt.
--- NOTE | 2021-08-16 10:15 | NUR ---
This student nurse changed Rt chest tube dressing with comfirmation from primary nurse. Pt's dressing saturated with light pink drainage r/t TPA given. Clamp still in place, pt has no c/o pain or discomfort at this time.
--- NOTE | 2021-08-16 10:23 | NUR ---
Agree with student nurses assessment of the patient. Chest tube intact. Patient independent in the room. Denies complaints of SOB and pain. VSS. PICC RAINA CDI. Call light within reach
--- NOTE | 2021-08-16 10:32 | NUR ---
[facility] is able to accept patient at time of discharge. SW updated Rashaad at [facility] that patient is not ready for discharge at this time. Discharge Plan: Home with [facility]
[2021-08-16 11:58] VITALS: BP 149/72; PULSE 82; TEMP 97.8
--- NOTE | 2021-08-16 12:50 | NUR ---
Pt has c/o pain and discomfort at this time. Has increased light pink leakage around Rt chest tube dressing. The drainage from the dressing leaked onto the bedding. This student nurse changed dressing at this time and Pt's sheets/bedding. Pt resting in bed and PRN pain medication given from Primary nurse Chantelle.
--- NOTE | 2021-08-16 13:37 | NUR ---
This student nurse reported off to Primary nurse Chantelle RN. Pt resting in bed comfortably with eyes closed at this time.
[2021-08-16 15:23] VITALS: BP 128/60; PULSE 86; TEMP 98.5
--- NOTE | 2021-08-16 17:42 | NUR ---
Patient sitting up in bed finishing eating dinner. Complaints of pain in right chest r/t chest tube. Pain medication given when requested. Moderate output with drainage from the site. Dressing changes as needed, chest tube intact. VSS. IV CDI. Patient independent in the room
--- NOTE | 2021-08-16 19:20 | NUR ---
SEE MAR FOR ROXICODONE AND XANAX GIVEN FOR CT PAIN AND ANXIETY. PT SITTING UP OVER BEDSIDE TABLE. PAIN LEVEL 9/10. NO RESP DISTRESS. CT TO WATERSEAL WITH REDDISH DRAINAGE NOTED. VISITOR HERE. CALL LIGHT IN REACH. PT INDEPENDENT IN ROOM.
[2021-08-16 20:54] VITALS: BP 143/84; PULSE 64; TEMP 97.9
--- NOTE | 2021-08-16 22:22 | NUR ---
SEE MAR FOR ROXICODONE GIVEN FOR UNRELIVED PAIN OF CT.
--- NOTE | 2021-08-16 23:02 | NUR ---
SEE MAR FOR ROBITUSSIN AND MELATONIN GIVEN.
--- NOTE | 2021-08-16 23:03 | NUR ---
ASSISTED PT BACK TO BED. STILL HAVING CT PAIN.
--- NOTE | 2021-08-16 23:42 | NUR ---
PT SLEEPING. NO RESP DISTRESS.
[2021-08-17 00:01] VITALS: BP 112/71; PULSE 74; TEMP 97.7
--- NOTE | 2021-08-17 00:37 | NUR ---
PT C/O COUGHING WITH SPUTUM AND CAUSED MUCH PAIN. ENCOURAGED PT TO LAY BACK DOWN AND TRY TO SLEEP. NO RESP DISTRESS.
[2021-08-17 04:18] VITALS: BP 140/70; PULSE 71; TEMP 98.4
--- NOTE | 2021-08-17 04:54 | NUR ---
SEE MAR FOR ROXICODONE GIVEN FOR GENERALIZED PAIN. NO RESP DISTRESS.
--- NOTE | 2021-08-17 07:58 | NUR ---
SHIFT ASSESSMENT COMPLETE. PT. IS SITTING UP IN BED EATING BREAKFAST. A&O X4. LEFT UPPER LOBE HAS EXP. WHEEZES, BUT ALL OTHER LOBES ARE CLEAR. CHEST TUBE IN THE RIGHT CHEST. DRESSING WAS REINFORCED AND IS NOW CD&I. PT. IS NOT COMPLAINING OF ANY PAIN AND HAS NO OTHER NEEDS AT THIS TIME. CALL LIGHT WITHIN REACH.
[2021-08-17 08:23] VITALS: BP 117/67; PULSE 74; TEMP 97.5
[2021-08-17 09:17] LABS: HEMOGLOBIN 10.3 g/dl (13.5-18.0); MEAN CELL VOLUME 85 fl (80.0-100.0); MEAN CORPUSCULAR HEMOGLOBIN 27 pg (27-31); MEAN CORPUSCULAR HGB CONC 32 g/dl (33.0-37.0); MEAN PLATELET VOLUME 10.6 fl (7.4-10.4); PLATELET COUNT 359 K/mm3 (130-400); RED BLOOD COUNT 3.78 M/mm3 (4.20-5.60); REDCELL DISTRIBUTION WIDTH-CV 14.5 % (11.5-14.5)
[2021-08-17 09:23] LABS: HEMATOCRIT 32.2 % (42.0-52.0)
[2021-08-17 09:39] LABS: CALCIUM 7.9 mg/dL (8.4-10.2); CREATININE, serum 0.98 mg/dL (0.72-1.25); POTASSIUM 4.3 mmol/L (3.5-4.5)
[2021-08-17 09:43] LABS: BAND 5 % (0-10); EOSINOPHIL 1 % (0-4); HYPOCHROMIA 1+; LYMPHOCYTE 8 % (20.0-51.0); NEUTROPHILS 80 % (42.0-75.2); PLATELET ESTIMATE NORMAL (NORMAL)
[2021-08-17 11:48] VITALS: BP 127/95; PULSE 93; TEMP 98.5
[2021-08-17 15:30] VITALS: BP 146/79; PULSE 86; TEMP 98.8
--- NOTE | 2021-08-17 15:42 | NUR ---
PT. HAS BEEN UP TO AMBULATE IN HALLS. AFTERWARDS, HE COMPLAINED OF PAIN IN HIS RIGHT SIDE. TYLENOL WAS GIVEN WHICH IMPROVED THE PAIN. 40 ML OF DRAINAGE SINCE LAST SJ IN CHEST TUBE. NO FURHTER NEEDS AT THIS TIME. CALL LIGHT WITHIN REACH.
[2021-08-17 20:38] VITALS: BP 129/70; PULSE 92; TEMP 98.3
[2021-08-18 00:38] VITALS: BP 131/74; PULSE 80; TEMP 98
[2021-08-18 04:14] VITALS: BP 145/73; PULSE 98; TEMP 98.7
--- NOTE | 2021-08-18 06:27 | NUR ---
pt on RA, CT to rt chest to H2O seal, dressing reinforced as needed. 50cc out this shift. up and active in room and walking in halls. oxycodone given @ HS x1, mild cough, scheduled cough suppressant given. PICC to RAINA secure, red port sluggish to flush and obtain blood, purple will not flush or draw, per shift report, has been this way for a few days now. will check on order for cath flow this am.
[2021-08-18 07:34] VITALS: BP 152/80; PULSE 84; TEMP 97.1
--- NOTE | 2021-08-18 07:35 | NUR ---
Patient layin in bed resting, easily awakened with verbal command. A&Ox3. VSS. IV CDI. Chest tube to water seal, intact. Denies pain and discomfort. Independent in the room. Call light within reach
[2021-08-18 07:42] LABS: CALCIUM 8.1 mg/dL (8.4-10.2); CREATININE, serum 0.9 mg/dL (0.72-1.25); POTASSIUM 4.5 mmol/L (3.5-4.5)
[2021-08-18 08:32] LABS: HEMOGLOBIN 11.1 g/dl (13.5-18.0); MEAN CELL VOLUME 86 fl (80.0-100.0); MEAN CORPUSCULAR HEMOGLOBIN 28 pg (27-31); MEAN CORPUSCULAR HGB CONC 32 g/dl (33.0-37.0); MEAN PLATELET VOLUME 10.2 fl (7.4-10.4); PLATELET COUNT 418 K/mm3 (130-400); RED BLOOD COUNT 4.01 M/mm3 (4.20-5.60); REDCELL DISTRIBUTION WIDTH-CV 14.6 % (11.5-14.5)
[2021-08-18 08:36] LABS: HEMATOCRIT 34.5 % (42.0-52.0)
[2021-08-18 09:06] LABS: BAND 2 % (0-10); HYPOCHROMIA 1+; LYMPHOCYTE 11 % (20.0-51.0); NEUTROPHILS 81 % (42.0-75.2); PLATELET ESTIMATE INCREASED (NORMAL)
[2021-08-18 11:26] VITALS: BP 147/87; PULSE 85; TEMP 97.9
[2021-08-18 15:42] VITALS: BP 142/68; PULSE 91; TEMP 98
--- NOTE | 2021-08-18 17:59 | NUR ---
Chest tube removed, patient tolerated well. Has been walking independently in the hallway. A&Ox4. VSS. IV CDI. Pain in right side chest, pain medication given when requested. Call light within reach
[2021-08-18 20:39] VITALS: BP 133/85; PULSE 89; TEMP 98.2
--- NOTE | 2021-08-18 22:12 | NUR ---
Patient assessed around 2019. Alert and oriented, and able to make needs known. Complaining of level 4 pain, given PRN Roxicodone as requested for pain. PICC to ANNABEL. Denies SOB and dyspnea. LS CTA in all left lung fileds, CTA in right upper lobe, but diminished in right middle and lower lobes. Dry cough. HRR. BSAx4. Abdomen soft and non-tender. No edema. Dressing to right chest tube site is CDI. 5 makenzie to area by dressing CDI, open to air. Voices no questions, needs, or concerns at this time.
[2021-08-19 00:18] VITALS: BP 133/76; PULSE 82; TEMP 98.9
[2021-08-19 03:55] VITALS: BP 140/81; PULSE 82; TEMP 98.5
--- NOTE | 2021-08-19 05:15 | NUR ---
Patient has recieved PRN Roxicodone about every 4 hours during the night. Patient reports feeling great this morning, and states that he was able to get some sleep last night. Denies SOB and dyspnea. Has been up ambulating in hallway this morning as well. Reports cough better controlled with medications as well. Remains on room air. Labs obtained from [facility] this morning per protocol. Voices no questions, needs, or concerns at this time. Call light within reach.
[2021-08-19 05:53] LABS: HEMOGLOBIN 10.6 g/dl (13.5-18.0); MEAN CELL VOLUME 86 fl (80.0-100.0); MEAN CORPUSCULAR HEMOGLOBIN 28 pg (27-31); MEAN CORPUSCULAR HGB CONC 32 g/dl (33.0-37.0); MEAN PLATELET VOLUME 10.6 fl (7.4-10.4); PLATELET COUNT 444 K/mm3 (130-400); RED BLOOD COUNT 3.85 M/mm3 (4.20-5.60); REDCELL DISTRIBUTION WIDTH-CV 14.5 % (11.5-14.5)
[2021-08-19 06:42] LABS: EOSINOPHIL 3 % (0-4); LYMPHOCYTE 14 % (20.0-51.0); MYELOCYTE 1 % (0-0); NEUTROPHILS 74 % (42.0-75.2); PLATELET ESTIMATE INCREASED (NORMAL)
[2021-08-19 06:43] LABS: HYPOCHROMIA 1+
[2021-08-19 07:52] VITALS: BP 137/74; PULSE 80; TEMP 98
--- NOTE | 2021-08-19 10:17 | NUR ---
PT UP INDEPENDENTLY IN HALLS AND ROOM. PLAN ON POSSIBLE DISCHARGE LATER TODAY AFTER CLEARED BY ALL SPECIALITIES SIGNING OFF. BLUE PORT WITH GOOD BLOOD RETURN, RED PORT FLUSHES HARD WITH NO BLOOD RETURN. FLUSHED X3.
[2021-08-19] MEDS ORDERED: CLEOCIN HCL300 MG PO (11:32)
[2021-08-19] MEDS ORDERED: TYLENOL 325MG325 MG PO (11:33)
[2021-08-19] MEDS ORDERED: ASPIRIN E.C. 8181 MG PO (11:34)
[2021-08-19] MEDS ORDERED: ROXICODONE 55 MG/TAB PO (11:34)
[2021-08-19 11:54] VITALS: BP 159/73; PULSE 91; TEMP 98
--- NOTE | 2021-08-19 13:12 | NUR ---
Patient to discharge home today. LIDA met with patient to review discharge plan. SW reviewed home health vs outpatient PT as patient has been independent in his room. Patient would like outpatient PT set up at [facility] in [place]. LIDA contacted [facility] and faxed referral with orders. Staff at [facility] advised they would reach out to patient to schedule first appointment. LIDA contacted Rashaad at [facility] and updated her on discharge plan. Discharge Plan: Home with outpatient PT
--- NOTE | 2021-08-19 16:21 | NUR ---
DISCHARGE INSTRUCTIONS PROVIDED TO PT. PT VERBALIZED UNDERSTANDING. PT LEFT PER WHEEL CHAIR WITH STAFF.
--- NOTE | 2021-08-19 17:03 | NUR ---
PT LEFT FLOOR AMBULATORY INDEPENDENTLY WITHOUT CALLING WHEN READY.
== END 2021-08-19 17:06 | disposition home or self-care (01) | DRG 853 ==
LOC: COL.ER 12:55 → SURG 16:32 → ICU 16:32 → SURG 08-08 15:54
PROVIDERS: Internal Medicine; Internal Medicine Pulmonary Disease; Physician Assistant; Student in an Organized Health Care Education/Training Program; Surgery; ADMIT Internal Medicine
PROC: 02HV33Z Insertion of Infusion Device into Superior Vena Cava, Percutaneous Approach (ICD-10-PCS; 2021-08-07)
PROC: 0W993ZZ Drainage of Right Pleural Cavity, Percutaneous Approach (ICD-10-PCS; 2021-08-08)
PROC: 0W9900Z Drainage of Right Pleural Cavity with Drainage Device, Open Approach (ICD-10-PCS; 2021-08-11)
PROC: 0BNK4ZZ Release Right Lung, Percutaneous Endoscopic Approach (ICD-10-PCS; principal; 2021-08-11 09:00)
PROC: 3C1ZX8Z Irrigation of Indwelling Device using Irrigating Substance, External Approach (ICD-10-PCS; 2021-08-16)
DX: A41.01 Sepsis due to Methicillin susceptible Staphylococcus aureus (principal); J18.9 Pneumonia, unspecified organism; J96.01 Acute respiratory failure with hypoxia; J44.0 Chronic obstructive pulmonary disease with (acute) lower respiratory infection; J90 Pleural effusion, not elsewhere classified; I10 Essential (primary) hypertension; J45.909 Unspecified asthma, uncomplicated; K21.9 Gastro-esophageal reflux disease without esophagitis; I08.1 Rheumatic disorders of both mitral and tricuspid valves; Z79.01 Long term (current) use of anticoagulants; Z86.73 Personal history of transient ischemic attack (TIA), and cerebral infarction without residual deficits; Z87.891 Personal history of nicotine dependence; Z88.0 Allergy status to penicillin
CPT/HCPCS: 99223-AI; 99231-AI; 99232-AI; 99233-AI; 99239; A7041; A7048; C1751; C9113; J0456; J0690; J0692; J0696; J1100; J1170; J1644; J1940; J2060; J2250; J2270; J2370; J2405; J2704; J2997; J3010; J3370; J3430; J7030; J7050; J7168; Q9967